=== PATIENT | female | born 1950 | race Caucasian/White ===

== ENCOUNTER 2019-03-12 09:45 | Day surgery (SDC) | payer BC, OTHER ==
[~2019-03-12 09:45] MED LIST: KETOROLAC TROMETHAMINE 0.45% 4 DROP/0.4 ML DROPERETTE OS PRN
[2019-03-12] MEDS: TETRACAINE HCL 0.5% OPH SOLN 4 ML OS PRN ×4 (10:01→10:33)
[2019-03-12] MEDS: CYCLOPENTOLATE 0.2%/PHENYLEPHRINE 1% OPH SOLN 2 ML OS PRN ×3 (10:02→10:25)
[2019-03-12] MEDS: BESIFLOXACIN HCL 0.6% OPH SUSP 5 ML BOTTLE OS PRN ×4 (10:02→10:56)
[2019-03-12] MEDS: TROPICAMIDE 1% OPH SOLN 3 ML OS PRN ×3 (10:02→10:25)
[2019-03-12] MEDS ORDERED: MIDAZOLAM 2 MG/2 ML INJ ONE (10:17)
[2019-03-12] MEDS: EPINEPHRINE INJ/PF 1 MG/1 ML AMPULE ONE ×2 (10:46)
[2019-03-12] MEDS: CHONDR SU A NA/HYALUR INTRAOC KIT (SURGICARE) ONE ×2 (10:46)
[2019-03-12] MEDS: LIDOCAINE 1% INJ-PF (10 MG/ML) 30 ML SDV ONE ×2 (10:46)
[2019-03-12] MEDS: DORZOLAMIDE HCL 2%/TIMOLOL MALEAT 0.5% OPH SOLN 10 ML OS PRN ×2 (10:56)
[2019-03-12] MEDS: TOBRAMYCIN SULFATE/DEXAMETH OPH OINTMENT 3.5 GM ONE ×2 (10:56)
== END 2019-03-12 11:34 | disposition home or self-care (01) ==
LOC: SC 09:45
PROVIDERS: ATTEND Ophthalmology
DX: H25.12 Age-related nuclear cataract, left eye (principal); Z87.891 Personal history of nicotine dependence
CPT/HCPCS: 66984; 00142; J2250; J3490 ×4; J0171; 142

== ENCOUNTER 2019-03-26 07:05 | Day surgery (SDC) | payer OTHER ==
[~2019-03-26 07:05] MED LIST changes: +KETOROLAC TROMETHAMINE 0.45% 4 DROP/0.4 ML DROPERETTE OD PRN; -KETOROLAC TROMETHAMINE 0.45% 4 DROP/0.4 ML DROPERETTE OS PRN
[2019-03-26] MEDS ORDERED: EPINEPHRINE INJ/PF 1 MG/1 ML AMPULE ONE (07:22)
[2019-03-26] MEDS ORDERED: LIDOCAINE 1% INJ-PF (10 MG/ML) 30 ML SDV ONE (07:23)
[2019-03-26] MEDS ORDERED: CHONDR SU A NA/HYALUR INTRAOC KIT (SURGICARE) ONE (07:24)
[2019-03-26] MEDS: CYCLOPENTOLATE 0.2%/PHENYLEPHRINE 1% OPH SOLN 2 ML OD PRN ×3 (07:37→08:02)
[2019-03-26] MEDS: TROPICAMIDE 1% OPH SOLN 3 ML OD PRN ×3 (07:37→08:02)
[2019-03-26] MEDS: BESIFLOXACIN HCL 0.6% OPH SUSP 5 ML BOTTLE OD PRN ×4 (07:38→08:31)
[2019-03-26] MEDS: TETRACAINE HCL 0.5% OPH SOLN 4 ML OD PRN ×3 (07:39→08:11)
[2019-03-26] MEDS ORDERED: FENTANYL CITRATE INJ/PF 100 MCG/2 ML AMPUL ONE (08:04)
[2019-03-26] MEDS ORDERED: MIDAZOLAM 2 MG/2 ML INJ ONE (08:04)
[2019-03-26] MEDS ORDERED: ONDANSETRON HCL INJ/PF 4 MG/2 ML SDV ONE (08:04)
[2019-03-26] MEDS: DORZOLAMIDE HCL 2%/TIMOLOL MALEAT 0.5% OPH SOLN 10 ML OD PRN ×2 (08:31)
[2019-03-26] MEDS: TOBRAMYCIN SULFATE/DEXAMETH OPH OINTMENT 3.5 GM ONE ×2 (08:31)
== END 2019-03-26 09:03 | disposition home or self-care (01) ==
LOC: SC 07:05
PROVIDERS: ATTEND Ophthalmology
DX: H25.11 Age-related nuclear cataract, right eye (principal); Z98.42 Cataract extraction status, left eye; Z87.891 Personal history of nicotine dependence
CPT/HCPCS: 00142; 66984; V2632; J2250; J3490 ×4; J0171; J3010; J2405; 142